=== PATIENT | female | born 1965 | race Caucasian/White ===

== ENCOUNTER 2019-11-14 06:14 | Inpatient (IN) | payer OTHER ==
[~2019-11-14] VITALS: Ht 165.1 cm; Wt 79.4 kg
[~2019-11-14 06:14] MED LIST: ATIVAN0.5 M1 PO; HUMI SQ; LANTUS SOLOS100 U/M1 SC; LANTUS SOLOS100 U/M1 SQ; LEVEMIR100 U/M1 SC; LEXAPRO10 MG PO; METFORMIN HCL1000 MG PO; PRILOSEC10 MG PO; PROVERA10 MG PO; RELION HUMUL100 U/M2
[2019-11-14 06:33] VITALS: BP 153/77
[2019-11-14 06:42] VITALS: BP 153/77
[2019-11-14 14:35] VITALS: BP 126/65
--- NOTE | 2019-11-14 14:50 | NUR ---
RECEIVED PT FROM OR, S/P HYSTERECTOMY. PT IS SEDATED AND SLEEPYING AT THIS TIME, LUNG SOUND CLEAR BILATERAL, NO COUGH, NO SOB. BOWEL SOUND ABSCENT AT THIS MOMENT. DRESSING AT ABD IS INTACT. NO BLEEDING OR DRAINAGE. FRIST DRESSING UNABLE TO REMOVE TO TAKE PICTURE. ABD BINDER IS IN PLACE. FOELY CATH IN PLACE, PEDAL PULSE PRESENT BOTH FEET, NO EDEMA, IV AT LEFT HAND, NO LEAKING, NO INFILTRATION. ALL ADLS ASSIST, ALL NEED MET, CALL LIGHT IN REACH, WILL CONTINUE TO MONITOR.
--- NOTE | 2019-11-14 14:54 | NUR ---
RECEIVED PATIENT POST OPERATIVE WITH DRESSING AND MIDLINE SUTURE LINE WITH ABDOMINAL BINDER IN PLACE. PATIENT HAS BEEN ORDERED RINGERS LACTATE AND CHANGE THE TUBING AND RUNNING AT 80CC PER HOUR. THE PATIENT HAS A PERES IN PLACE AND PER THE RECOVERY THE PATIENT THEY OPTED TO KEEP THE PERES IN PLACE FOR NOW. PATIENT HAS A DIET ORDERED. SHE HAD INSULIN IN THE RECOVERY AND HAD TORADOL, DILAUDID AND ZOFRAN. SHE RECEIVED ANCEF 2 GRAMS AND DUE FOR ANOTHER DOSE. PATIENT HAS HYPOTHYROID AND HTN AND ALSO RECIEVED LABATOLOL IN THE OR WITH INSULIN COVERAGE FOT ELEBATED BLOOD SUGAR. THE DAUGHTER AT BEDSIDE AND SUPPORTIVE WITH CARE. PATIENT IS SLEEPY AT THIS TIME. SHE DOES NOT APPEAR IN ANY ACUTE DISTRESS. WILL CONTINUE TO MONITOR INDICATED. PATIENT ON ROOM AIR AND BREATHING IS UNLABORED AND SHE IS BREATHING DEEPLY.
[2019-11-14 17:39] VITALS: BP 134/69
--- NOTE | 2019-11-14 17:51 | NUR ---
PATIENT COMPLAINED OF PAIN AND GAVE DILAUDID INDICATED. THE BLOOD SUGAR AT WAS ELEVATED AND GAVE THE 70/25 INSULIN INDICATED. PATIENT IS SLEEPYB UT THE DAUGHTER STATES SHE COMPLAINED OF PAIN AND HUNGERY. PATIENT HAS NOT EATTEN YET AND IF SHE CAN TOLERATE THE FOOD WILL GIVE THE 1700 MEDICATIONS COLACE AND IRON. PATIENT HAS IV FLUIDS CONTINUED AND HAS HAD THE DAUGHTER AT BEDSIDE SINCE SHE ARRIVED TO THE FLOOR POST OPERATIVE. WILL CONTINUE TO MONITOR.
--- NOTE | 2019-11-14 19:25 | NUR ---
Pt. received from day shift, currently resting in bed, awake with pt. family at bedside. Pt. is s/p supracervical abdominal hysterectomy and oopherectomy with lysis of lesions on bladder. Pt. at this time has c/o of back pain 4/10, but is tolerating pain well. Pt. states she doesn't want pain medication until it gets stronger. Pt. is a/o x3, able to make most needs known, able to follow commands, has no c/o h/a. Pt. is on RA, breathing even and unlabored, no s/o SOB or distress. Pt. on herrera catheter, draining clear and yellow and to gravity. Will continue to monitor pt.
[2019-11-14 21:02] VITALS: BP 137/63
--- NOTE | 2019-11-14 22:30 | NUR ---
pt. c/o of moderate pain at this time in her back, will medicate with norco as ordered and continue to monitor pt.
--- NOTE | 2019-11-14 22:43 | NUR ---
Pt. refused the heparin tonight d/t fresh surgical incision site. Dressing in tact, no s/o active bleeding. Will continue to monitor
--- NOTE | 2019-11-15 | NUR ---
Pt. asleep throughout most of the night, no c/o of pain at this time. pt. stable, only c/o of back pain 03/24, at 2230. medicated w/ norco as ordered. Will continue to monitor pt.
[2019-11-15 05:59] VITALS: BP 137/68
--- NOTE | 2019-11-15 06:06 | NUR ---
Pt. states that when she took levothyroxine last, her throat hurt a lot, and wasn't able to swallow x3 days. Will continue to monitor and endorse to oncoming shift RN.
--- NOTE | 2019-11-15 06:11 | NUR ---
Pt. asleep throughout most of the shift, w/ family at bedside. Pt. had 1x c/o of moderate pain, was medicated with norco x1 as ordered. Pt. surgical site dressing still in tact, no s/o of active bleeding or discharge. Otherwise, pt. stable, no c/o of h/a, n,v, or s/o pain or distress at this time. Will endorse to next shift RN about pt. stating about the medication allergies.
[2019-11-15 07:15] LABS: BASOPHIL % 0.4 % (0-2); PLATELET COUNT 187 x10^3mcL (130-400)
--- NOTE | 2019-11-15 07:15 | NUR ---
RECEIVED PATIENT. IN BED SLEEPING, EASILY AROUSABLE. FAMILY AT BEDSIDE. NO ACUTE RESP DISTRESS NOTED. NO COMPLAINTS OF PAIN AT THIS TIME. IV INTACT AND PATENT. CALL LIGHT WITHIN REACH. SAFETY PRECAUTION IN PLACE. WILL CONTINUE TO MONITOR.
[2019-11-15 07:22] LABS: RED CELL DISTRIBUTION WIDTH 20.2 % (11.5-14.5)
[2019-11-15 08:10] VITALS: BP 146/72
--- NOTE | 2019-11-15 09:45 | NUR ---
PATIENT IN BED, STABLE. NO ACUTE RESP DISTRESS NOTED. IV INTACT AND PATENT. NO ERYTHEMA OR SWELLING NOTED. D/C PERES CATHETER ORDERED. PT TOLERATED WELL. PERES CATH HAD TOTAL 1000 CC URINE IN BAG, YELLOW AND CLEAR. SAFETY PRECAUTION IN PLACE. CALL LIGHT WITHIN REACH. FAMILY AT BEDSIDE. WILL CONTINUE TO MONITOR.
--- NOTE | 2019-11-15 10:22 | NUR ---
1010: PT ASSISTED TO AMBULATE FROM BED TO RESTROOM. PAIN IN THE ABDOMEN NOTED. INSTRUCTED TO MOVE SLOWLY AND TOLERATED. PT VERBALIZED UNDERSTANDING. SAFETY PRECAUTIOM IN PLACE. 1022: PT REQUESTING PAIN MEDICATION FOR ABDOMINAL PAIN 6/10 PAIN. NORCO PO GIVEN. WILL CONTINUE TO MONITOR.
[2019-11-15 12:38] VITALS: BP 162/86
--- NOTE | 2019-11-15 12:56 | NUR ---
JUANCARLOS FROM [facility] SIGNED CONSENTS WITH PATIENT. PER JUANCARLOS PATIENT WILL GO TO [facility] TOMORROW AFTER [facility] WILL DELIVER THE EQUIPMENT. DR ALMARAZ MADE AWARE AND AGREED WITH THE PLAN. ATTENDING NURSE GALDINO MADE AWARE.
--- NOTE | 2019-11-15 14:30 | NUR ---
SPOKE WITH PATIENT AND FAMILY REGARDING USE OF INCENTIVE SPIROMETER AND ENCOURAGED PATIENT TO AMBULATE TOLERATED TO PREVENT COMPLICATIONS SUCH PNEUMONIA. PT AND FAMILY VERBALIZED UNDERSTANDING. SAFETY PRECAUTION IN PLACE. DENIES PAIN AT THIS TIME. NO RESP DISTRESS NOTED. CALL LIGHT WITHIN REACH. WILL CONTINUE TO MONITOR.
[2019-11-15 16:21] VITALS: BP 169/84
--- NOTE | 2019-11-15 17:30 | NUR ---
PATIENT IN BED, SLEEPING. EASILY AROUSABLE. RECHECKED BLOOD SUGAR, 67. HELD HUMALOG 75/25 MEDICATION. WILL RECHECKED BS AFTER DINNER. NO ACUTE RESP DISTRESS NOTED AT THIS TIME. TOLERABLE PAIN 3/10 PAIN AT THIS TIME TO ABDOMEN. SAFETY PRECAUTION IN PLACE. CALL LIGHT WITHIN REACH. FAMILY AT BEDSIDE. WILL CONTINUE TO MONITOR.
--- NOTE | 2019-11-15 17:53 | NUR ---
PATIENT COMPLAINING OF PAIN 8/10 PAIN TO ABDOMEN, STATES FEELING BLOATED. EDUCATION PROVIDED REGARDING PAIN. NORCO 5MG PO GIVEN AT THIS TIME. WILL CONTINUE TO MONITOR.
--- NOTE | 2019-11-15 18:30 | NUR ---
RECHECKED BLOOD SUGAR 127. PT STABLE. NO ACUTE DISTRESS NOTED. NO COMPLAINTS OF PAIN AT THIS TIME. VISITOR AT BEDSIDE. IV INTACT AND PATENT. CALL LIGHT WITHIN REACH. WILL ENDORSE CARE TO RX SPECIALIST NURSE.
--- NOTE | 2019-11-15 19:52 | NUR ---
RECEIVED PATIENT IN BED AWAKE WITH NO C/O POST OPERATIVE PAIN AT THIS TIME. BREATHING EASYA ND NONLABOR SATTING AT 98% RA. ABDOMEN ROUND ,SOFT AND NON TENDER WITH ACTIVE BS. ABDOMINAL INCISION WITH DRESSING AND ABDOMINAL BINDER CDI. IV TO LH INTACT AND INFUSING WELL, NO REDNESS AND NO SWELLING NOTED TO SITE. WILL CONTINUE TO MONITOR. CALL LIGHT WITHIN REACH.
[2019-11-15 21:11] VITALS: BP 140/65
--- NOTE | 2019-11-16 00:24 | NUR ---
APPEAR TO BE SLEEPING WITH NO INDICATION OF PAINAND DISCOMFORT NOTED. WILL CONTINUE TO MONITOR.
--- NOTE | 2019-11-16 05:00 | NUR ---
CHECKED AT INTERVALS FOR NEEDS ANDCOMFORT, ALL NEEDS ATTENDED.
[2019-11-16 05:54] VITALS: BP 150/83
--- NOTE | 2019-11-16 07:15 | NUR ---
PATIENT IN BED, SLEEPING. EASILY AROUSABLE. NO ACUTE RESP DISTRESS NOTED. NO COMPLAINTS OF PAIN AT THIS TIME. IV INTACT AND PATENT. SAFETY PRECAUTION IN PLACE. CALL LIGHT WITHIN REACH. WILL CONTINUE TO MONITOR.
[2019-11-16 08:50] VITALS: BP 149/77
--- NOTE | 2019-11-16 09:12 | NUR ---
PT IN BED, SLEEPING. NO ACUTE RESP DISTRESS NOTED. NO COMPLAINTS OF PAIN AT THIS TIME. IV INTACT AND PATENT. SAFETY PRECAUTION IN PLACE. CALL LIGHT WIHTIN REACH. WILL CONTINUE TO MONITOR.
--- NOTE | 2019-11-16 11:40 | NUR ---
DR. JACKSON SEEN SPEAKING WITH PATIENT REGARDING PLAN OF CARE AFTER DISCHARGE. PT AND DAUGHTER VERBALIZED UNDERSTANDING. ALL QUESTIONS AND CONCERNS ADDRESSED. PER DR. JACKSON, GIVE MOTRIN PRIOR TO DISCHARGE AND HE WILL START WORKING TO FINALIZE DISCHARGE INSTRUCTION. ABDOMINAL DRESSING CHANGED, ABDOMINAL PAD WITH TAPE IN PLACE, SCANT SANGUINEOUS/SERSANGUIANEOUS NOTED FROM OLD DRESSING. PER DR. JACKSON, HE WANTS THE WOUND TO BE ALMOST LEFT OPEN TO AIR. WILL OBTAIN PHOTOGRAPH OF INCISION WITH PEBBLES PRIOR TO DISCHARGE. WILL CONTINUE TO MONITOR.
--- NOTE | 2019-11-16 12:30 | NUR ---
D/C IV TO LEFT HAND, CATHETER INTACT. TOLERATED WELL, APPLIED PRESSURE, GAUZE AND TAPE IN PLACE. ID BANDS REMOVED. WILL GIVE MEDICATION AFTER LUNCH. PT VERBALIZED UNDERSTANDING. PT EATING LUNCH AT THIS TIME. NO ACUTE DISTRESS NOTED. WILL CONTINUE TO MONITOR. DAUGHTER AT BEDSIDE.
[2019-11-16 12:37] VITALS: BP 133/70
[2019-11-16 13:08] VITALS: BP 133/70
--- NOTE | 2019-11-16 13:15 | NUR ---
DISCHARGE HOME INSTRUCTIONS GIVEN TO PT AND DAUGHTER. PT AND DAUGHTER VERBALIZED UNDERSTANDING. ALL QUESTIONS AND CONCERNS ADDRESSED. WILL BE ACCOMPANIED TO LOBBY BY KELECHI MCLAIN VIA WHEELCHAIR. ALL NEEDS MET.
== END 2019-11-16 13:24 | disposition home or self-care (01) | DRG 519 ==
LOC: MU 06:14
PROVIDERS: ADMIT Obstetrics & Gynecology
PROC: 0UT20ZZ Resection of Bilateral Ovaries, Open Approach (ICD-10-PCS; 2019-11-14)
PROC: 0UT70ZZ Resection of Bilateral Fallopian Tubes, Open Approach (ICD-10-PCS; 2019-11-14)
PROC: 0TNB0ZZ Release Bladder, Open Approach (ICD-10-PCS; 2019-11-14)
PROC: 0UT90ZL Resection of Uterus, Supracervical, Open Approach (ICD-10-PCS; principal; 2019-11-14 07:30)
DX: D25.9 Leiomyoma of uterus, unspecified (principal); E03.9 Hypothyroidism, unspecified; E11.9 Type 2 diabetes mellitus without complications; N83.201 Unspecified ovarian cyst, right side; N92.0 Excessive and frequent menstruation with regular cycle; N83.202 Unspecified ovarian cyst, left side; N73.6 Female pelvic peritoneal adhesions (postinfective); I10 Essential (primary) hypertension
CPT/HCPCS: 82962; 94150; G0378; J0330; J0690; J1170; J1644; J1815; J2175; J2250; J2405; J2550; J2704; J2710; J2765; J3010; J3490; J7030; J7120; J7121